=== PATIENT | male | born 1960 | race Caucasian/White ===

== ENCOUNTER 2021-03-28 15:08 | Emergency (ER) | payer OTHER ==
[~2021-03-28] VITALS: Ht 172.7 cm; Wt 90.7 kg
[2021-03-28 15:13] VITALS: BP 123/64
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
--- NOTE | 2021-03-28 15:20 | NUR ---
DR UPTON AT [facility] EXAMINING PATIENT
[2021-03-28 15:38] VITALS: BP 123/64
--- NOTE | 2021-03-28 15:43 | NUR ---
Patient discharged with v/s stable. Written and verbal after care instructions given and explained. Patient verbalized understanding. Ambulatory with steady gait. All questions addressed prior to discharge. Advised to follow up with PMD.
== END 2021-03-28 15:43 ==
LOC: MED 15:08
DX: Z02.89 Encounter for other administrative examinations (principal); I10 Essential (primary) hypertension; Z86.73 Personal history of transient ischemic attack (TIA), and cerebral infarction without residual deficits; Y93.89 Activity, other specified; Y92.89 Other specified places as the place of occurrence of the external cause; Y99.8 Other external cause status
CPT/HCPCS: 99283